=== PATIENT | female | born 2000 | race Caucasian/White ===

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

== ENCOUNTER 2019-03-15 05:49 | Inpatient (IN) | payer SELFPAY ==
[2019-03-15] MEDS: Lactated Ringers 1,000 ML IV SCH ×2 (06:05→07:17)
[2019-03-15] MEDS ORDERED: Sodium Chloride 0.9% 10 ML Syringe FLUSH PRN (06:23)
[2019-03-15] MEDS ORDERED: Sodium Chloride 0.9% 2.5 ML Syringe FLUSH PRN (06:23)
[2019-03-15] MEDS ORDERED: Citric Acid/Sodium Citrate Solution 30 ML Cup PO ONE (06:23)
[2019-03-15] MEDS ORDERED: Sodium Chloride 0.9% 10 ML SDV IV PRN (06:23)
[2019-03-15] MEDS ORDERED: ceFAZolin 1 GM in Premix Bag 1 BAG IV ONE (06:23)
[2019-03-15] MEDS ORDERED: Oxytocin/0.9 % Sodium Chloride 30 UNIT/500 ML BAG IV SCH (06:30)
[2019-03-15] MEDS ORDERED: Ondansetron 4 MG/2 ML SDV ONE (07:13)
[2019-03-15] MEDS ORDERED: Oxytocin 10 Units/1 ML SDV ONE (07:13)
[2019-03-15] MEDS ORDERED: Sodium Chloride 0.9% 20 ML ONE ×2 (07:13→08:05)
[2019-03-15] MEDS ORDERED: ceFAZolin 1 GM Vial ONE (07:13)
[2019-03-15] MEDS ORDERED: Morphine PF 10 MG/10 ML SDV ONE (07:14)
--- NOTE | 2019-03-15 07:30 | PCM.PREANE ---
Preanesthetic Assessment - Anesthesia/Transfusion/Family Hx Anesthesia History: Prior Anesthesia Without Reaction (Prior Epidural with conversion for ) Family History of Anesthesia Reaction: No Transfusion History: No Prior Transfusion(s) Type of Transfusion Reactions: Reports: Unknown - Review of Systems General: No Symptoms Pulmonary: No Symptoms Cardiovascular: No Symptoms Gastrointestinal: No Symptoms Neurological: No Symptoms Other: Reports: None - Physical Assessment NPO Status Date: 03/14/19 NPO Status Time: 22:00 Height: 5 ft 6 in Weight: 67.585 kg ASA Class: 2 Mental Status: Alert & Oriented x3 Airway Class: Mallampati = 2 Dentition: Reports: Normal Dentition Thyro-Mental Finger Breadths: 3 Mouth Opening Finger Breadths: 3 ROM/Head Extension: Full Lungs: Clear to Auscultation, Normal Respiratory Effort Cardiovascular: Regular Rate, Regular Rhythm - Lab Values: Laboratory Last Values WBC 9.47 K/uL (4.0-11.0) 03/15/19 06:07 RBC 3.90 M/uL (4.30-5.90) L 03/15/19 06:07 Hgb 11.8 g/dL (12.0-16.0) L 03/15/19 06:07 Hct 36.3 % (36.0-46.0) 03/15/19 06:07 MCV 93.1 fL (80.0-98.0) 03/15/19 06:07 MCH 30.3 pg (27.0-32.0) 03/15/19 06:07 MCHC 32.5 g/dL (31.0-37.0) 03/15/19 06:07 RDW Std Deviation 48.2 fl (28.0-62.0) 03/15/19 06:07 RDW Coeff of Rosemary 14 % (11.0-15.0) 03/15/19 06:07 Plt Count 196 K/uL (150-400) 03/15/19 06:07 MPV 11.20 fL (7.40-12.00) 03/15/19 06:07 Nucleated RBC % 0.0 /100WBC 03/15/19 06:07 Nucleated RBCs # 0 K/uL 03/15/19 06:07 Blood Type A POSITIVE 03/15/19 06:07 Antibody Screen NEGATIVE 10/08/19 06:07 - Allergies Allergies/Adverse Reactions: Allergies Allergy/AdvReac Type Severity Reaction Status Date / Time pork derived (porcine) Allergy Mouth Sores Verified 03/09/19 13:33 Pork/Porcine Containing Allergy Other Verified 03/09/19 13:33 Products - Acknowledgements Anesthesia Type Planned: General Anesthesia, Spinal (Duramorph) Pt an Appropriate Candidate for the Planned Anesthesia: Yes Alternatives and Risks of Anesthesia Discussed w Pt/Guardian: Yes Pt/Guardian Understands and Agrees with Anesthesia Plan: Yes PreAnesthesia Questionnaire - Past Health History Medical/Surgical History: Denies Medical/Surgical History HEENT History: Reports: Other (See Below) Other HEENT History: wears glasses, permanent lower dental retainer Cardiovascular History: Reports: None Respiratory History: Reports: None Gastrointestinal History: Reports: GERD Genitourinary History: Reports: UTI, Recurrent REVERSE ENGINEER History: Reports: : 2 Para: 1 LMP (Approximate): Musculoskeletal History: Reports: Fracture Other Musculoskeletal History: hx fx wrist Neurological History: Reports: None Psychiatric History: Reports: None Endocrine/Metabolic History: Reports: None Hematologic History: Reports: None Immunologic History: Reports: None Oncologic (Cancer) History: Reports: None Dermatologic History: Reports: None - Infectious Disease History Infectious Disease History: Reports: None - Past Surgical History Head Surgeries/Procedures: Reports: None Cardiovascular Surgical History: Reports: None Respiratory Surgical History: Reports: None GI Surgical History: Reports: None Female Surgical History: Reports: Section Endocrine Surgical History: Reports: None Neurological Surgical History: Reports: None Musculoskeletal Surgical History: Reports: None Oncologic Surgical History: Reports: None Dermatological Surgical History: Reports: None - SUBSTANCE USE Smoking Status *Q: Never Smoker Second Hand Smoke Exposure: No Recreational Drug Use History: No - HOME MEDS Home Medications: Home Meds L.acidoph,Paracasei, B.lactis [Probiotic] 1 tab PO DAILY 03/09/19 [History] PNV95/Ferrous Fumarate/FA [ Vitamin Tablet] 1 tab PO DAILY 03/09/19 [ History] - CURRENT (IN HOUSE) MEDS Current Meds: Current Medications Lactated Ringer's (Ringers, Lactated) 1,000 mls @ 500 mls/hr IV BOLUS ABELINO Last Admin: 03/15/19 07:17 Dose: 999 mls/hr Oxytocin/Sodium Chloride (Oxytocin 30 Unit/500 Ml-Ns) 30 unit in 500 mls @ 250 mls/hr IV TITRATE ABELINO Sodium Chloride (Saline Flush) 10 ml FLUSH ASDIRECTED PRN PRN Reason: Keep Vein Open Sodium Chloride (Saline Flush) 2.5 ml FLUSH ASDIRECTED PRN PRN Reason: Keep Vein Open Sodium Chloride (Normal Saline) 10 ml IV ASDIRECTED PRN PRN Reason: IV Use Discontinued Medications Cefazolin Sodium (Ancef) Confirm Administered Dose 2 gm .ROUTE .STK-MED ONE Stop: 03/15/19 07:14 Citric Acid/Sodium Citrate (Bicitra Solution) 30 ml PO ONETIME ONE Stop: 03/15/19 06:24 Cefazolin Sodium/Dextrose 1 gm (/ Premix) 50 mls @ 100 mls/hr IV ONETIME ONE Stop: 03/15/19 06:52 Sodium Chloride (Normal Saline) Confirm Administered Dose 20 mls @ as directed .ROUTE .STK-MED ONE Stop: 03/15/19 07:14 Morphine Sulfate (Duramorph Pf) Confirm Administered Dose 10 mg .ROUTE .STK-MED ONE Stop: 03/15/19 07:15 Ondansetron HCl (Zofran) Confirm Administered Dose 4 mg .ROUTE .STK-MED ONE Stop: 03/15/19 07:14 Oxytocin (Pitocin) Confirm Administered Dose 30 unit .ROUTE .STK-MED ONE Stop: 03/15/19 07:14
[2019-03-15] MEDS ORDERED: ePHEDrine 50 MG/ML SDV ONE (08:04)
[2019-03-15] MEDS ORDERED: Glycopyrrolate 0.2 MG/ML SDV ONE (08:07)
[2019-03-15] MEDS ORDERED: fentaNYL 100 MCG/2 ML SDV ONE (08:20)
[2019-03-15] MEDS ORDERED: Metoclopramide 10 MG/2 ML SDV ONE (08:27)
[2019-03-15] MEDS ORDERED: Octyl 2-Cyanoacrylate 1 Tube ONE (08:33)
[2019-03-15] MEDS ORDERED: Naloxone 0.4 MG/ML Syringe IVPUSH PRN (08:36)
[2019-03-15] MEDS ORDERED: Nalbuphine 10 MG/1 ML Vial IVPUSH PRN (08:36)
[2019-03-15] MEDS ORDERED: diphenhydrAMINE 50 MG/ML SDV IVPUSH PRN ×2 (08:36→08:38)
--- NOTE | 2019-03-15 08:37 | PCM.OPNOTE ---
- General Post-Op/Procedure Note Date of Surgery/Procedure: 03/15/19 Operative Procedure(s): repeat low transverse Findings: Liveborn male 8/9 weight pending normal pelvis Pre Op Diagnosis: 39 weeks prior , declines VTOL Post-Op Diagnosis: Same Anesthesia Technique: Spinal Primary Surgeon: Breana Kurtz Secondary Surgeon: Sherri Russell Anesthesia Provider: Miguelito Ring Pathology: none Fluid Replacement, Intraop: 1,000 EBL in mLs: 500 Complications: None Known Condition: Good
[2019-03-15] MEDS ORDERED: Lanolin 100% Cream 7 GM Tube TOP PRN (08:38)
[2019-03-15] MEDS ORDERED: Bisacodyl 10 MG Supp RECTAL PRN (08:38)
[2019-03-15] MEDS ORDERED: Ondansetron 4 MG/2 ML SDV IVPUSH PRN (08:38)
[2019-03-15] MEDS ORDERED: Lactated Ringers 1,000 ML IV SCH (08:45)
[2019-03-15] MEDS: Ketorolac 30 MG/ML SDV IVPUSH SCH ×3 (09:15→21:40)
--- NOTE | 2019-03-15 09:39 | PCM.POSTAN ---
POST ANESTHESIA ASSESSMENT - MENTAL STATUS Mental Status: Alert, Oriented - VITAL SIGNS Vital Signs: Last Vital Signs Temp 97.0 F 03/15/19 08:50 Pulse 99 03/15/19 09:25 Resp 18 03/15/19 09:25 BP 112/53 L 03/15/19 09:25 Pulse Ox 97 03/15/19 09:25 - RESPIRATORY Respiratory Status: Respiratory Rate WNL, Airway Patent, O2 Saturation Stable - CARDIOVASCULAR CV Status: Pulse Rate WNL, Blood Pressure Stable - GASTROINTESTINAL GI Status: No Symptoms - POST OP HYDRATION Hydration Status: Adequate & Stable
--- NOTE | 2019-03-15 14:49 | OR ---
SURGEON: Breana Kurtz M.D. DATE OF PROCEDURE: 03/15/2019 PREOPERATIVE DIAGNOSES: 39-week intrauterine , prior delivery, short interval between pregnancies. POSTOPERATIVE DIAGNOSES: 39-week intrauterine , prior delivery, short interval between pregnancies. PROCEDURE: Repeat low-transverse section. PRIMARY SURGEON: Breana Kurtz M.D. SURGICAL SCRUB TECHNICIAN: first [employer], student. ANESTHESIA: Spinal. ESTIMATED BLOOD LOSS: 500 mL with amniotic fluid. FINDINGS: Live-born male. score 8 and 9, weighing 2910 g. Normal-appearing uterus, tubes, and ovaries. COMPLICATIONS: None known. DISPOSITION: Stable to recovery. BRIEF HISTORY: This is a 18-year-old female. She is G2, P1-0-0-1. She presents at 39 weeks gestation for repeat low-transverse section. She has declined vaginal trial of labor and this is not recommended due to short interval between pregnancies with her child being only 14 months old. She understands risks of the delivery including risk of bleeding; infection; injury to bowel, bladder, blood vessels or other organs; risk of thromboembolic event; and risk of anesthesia. Understanding all these risks, she does desire to proceed. DESCRIPTION OF PROCEDURE: With the patient in left tilt position, under adequate spinal analgesia, the abdomen was prepped with chlorhexidine and draped in the usual fashion for abdominal surgery. SCDs were in place. Pinto catheter had been placed. An appropriate time-out was held. She had received 1 g of Ancef IV. After documentation of adequate analgesia, the prior cicatrix was excised and the incision was carried through the subcutaneous tissue to the fascia, which was scored transversely in the midline. The fascial incision was extended laterally using curved Russell scissors. The fascia was elevated from the underlying rectus muscle using sharp and blunt dissection. The rectus muscles were bluntly in the midline. Peritoneum was entered with a finger and this incision was extended using sharp and blunt dissection. The Danny O retractor was placed. The visceroperitoneum over the lower uterine segment was incised and a transverse curvilinear incision was made over the lower uterine segment with a scalpel. Clear fluid was noted. This incision was extended using blunt dissection. The head was delivered via the uterine incision and elevated and delivered with subsequent delivery of the infant's body without any difficulty. The was bulb suctioned by nose and mouth. After 1 minute, the cord was doubly clamped and cut and the infant was handed to the bench hand in attendance at delivery. The was a liveborn male, score 8 and 9, weighing 2910 g. Cord blood was collected for cord ABGs as well as routine cord blood sampling. Pitocin was initiated after delivery of the to assist with delivery of the placenta which was delivered by manual extraction. The cervix was opened with a ring forceps. The uterus was cleaned with a dry laparotomy and tape. The uterine incision was closed with a running lock suture of 0 Polysorb followed by imbricating layer of 0 Polysorb. There was a small area in the right midportion of the uterus requiring a figure-of- eight suture for complete hemostasis and a left lateral suture was also placed for hemostasis. The uterus being completely hemostatic, the paracolic gutters were cleaned with a wet laparotomy tape and the uterine incision was again inspected, it was hemostatic. Therefore, the Danny O retractor was removed. The incision was once again inspected and was hemostatic. The rectus muscle and peritoneum were loosely approximated in midline using a running mattress suture of 0 Polysorb. The posterior aspect of the fascia was inspected and the fascial incision was closed with a running suture of 0 Polysorb. Subcutaneous tissue was irrigated. Any areas of bleeding that were noted were cauterized. The skin was closed with a running subcuticular suture of 3-0 Monocryl followed by Dermabond. Final sponge, needle, and instrument counts were reported as correct. There were no known complications. Mother and baby are in recovery in good condition. KATY / MARIO /[id number]
[2019-03-15] MEDS: Docusate Sodium 100 MG Cap PO SCH ×2 (17:39→21:39)
[2019-03-16] MEDS: Ketorolac 30 MG/ML SDV IVPUSH SCH ×2 (03:50→09:22)
--- NOTE | 2019-03-16 08:09 | PCM48HPAN ---
Post Anesthesia Note - EVALUATION WITHIN 48HRS OF ANESTHETIC Vital Signs in Normal Range: Yes Patient Participated in Evaluation: Yes Respiratory Function Stable: Yes Airway Patent: Yes Cardiovascular Function Stable: Yes Hydration Status Stable: Yes Pain Control Satisfactory: Yes Nausea and Vomiting Control Satisfactory: Yes Mental Status Recovered: Yes Vital Signs: Last Vital Signs Temp 97.2 F 03/16/19 04:00 Pulse 66 03/16/19 04:00 Resp 18 03/16/19 07:00 BP 133/58 L 03/16/19 04:00 Pulse Ox 98 03/16/19 07:00
--- NOTE | 2019-03-16 08:53 | PCM.PNPP ---
- General Info Date of Service: 03/16/19 Functional Status: Reports: Pain Controlled, Tolerating Diet, Ambulating - Review of Systems General: Reports: No Symptoms HEENT: Reports: No Symptoms Pulmonary: Reports: No Symptoms Cardiovascular: Reports: No Symptoms Gastrointestinal: Reports: No Symptoms Genitourinary: Reports: No Symptoms Musculoskeletal: Reports: No Symptoms Skin: Reports: No Symptoms Neurological: Reports: No Symptoms Psychiatric: Reports: No Symptoms - Patient Data Vital Signs - Most Recent: Last Vital Signs Temp 36.2 C 03/16/19 04:00 Pulse 66 03/16/19 04:00 Resp 18 03/16/19 07:00 BP 133/58 L 03/16/19 04:00 Pulse Ox 98 03/16/19 07:00 Weight - Most Recent: 67.585 kg I&O - Last 24 Hours: Intake & Output 03/15/19 03/16/19 03/16/19 22:59 06:59 14:59 Intake Total 150 Output Total 1425 1500 Balance -1275 -1500 Lab Results - Last 24 Hours: Laboratory Results - last 24 hr 03/16/19 Range/Units 05:58 Hgb 10.5 L (12.0-16.0) g/dL Hct 32.9 L (36.0-46.0) % Med Orders - Current: Current Medications Bisacodyl (Dulcolax) 10 mg RECTAL ONETIME PRN PRN Reason: Constipation Diphenhydramine HCl (Benadryl) 25 mg IVPUSH Q6H PRN PRN Reason: Itching or Nausea Docusate Sodium (Colace) [address] [facility] Last Admin: 03/15/19 21:39 Dose: 100 mg Emollient Ointment (Lansinoh Hpa) 0 gm TOP ASDIRECTED PRN PRN Reason: Sore Nipples Lactated Ringer's (Ringers, Lactated) 1,000 mls @ 125 mls/hr IV ASDIRECTED [facility] Ibuprofen (Motrin) 800 mg PO Q8H PRN PRN Reason: mild pain or fever Ondansetron HCl (Zofran) 4 mg IVPUSH Q4H PRN PRN Reason: Nausea/Vomiting Oxycodone/Acetaminophen (Percocet 325-5 Mg) 1 tab PO Q4H PRN PRN Reason: Pain (moderate 4-6) Oxycodone/Acetaminophen (Percocet 325-5 Mg) 2 tab PO Q4H PRN PRN Reason: Pain (moderate 4-6) Discontinued Medications Cefazolin Sodium (Ancef) Confirm Administered Dose 2 gm .ROUTE .STK-MED ONE Stop: 03/15/19 07:14 Citric Acid/Sodium Citrate (Bicitra Solution) 30 ml PO ONETIME ONE Stop: 03/15/19 06:24 Diphenhydramine HCl (Benadryl) 25 mg IVPUSH Q4H PRN PRN Reason: Itching Stop: 03/16/19 08:37 Last Admin: 03/15/19 17:55 Dose: 25 mg Ephedrine Sulfate (Ephedrine Sulfate) Confirm Administered Dose 50 mg .ROUTE .STK-MED ONE Stop: 03/15/19 08:05 Fentanyl (Sublimaze) Confirm Administered Dose 100 mcg .ROUTE .STK-MED ONE Stop: 03/15/19 08:21 Glycopyrrolate (Robinul) Confirm Administered Dose 0.2 mg .ROUTE .STK-MED ONE Stop: 03/15/19 08:08 Cefazolin Sodium/Dextrose 1 gm (/ Premix) 50 mls @ 100 mls/hr IV ONETIME ONE Stop: 03/15/19 06:52 Lactated Ringer's (Ringers, Lactated) 1,000 mls @ 500 mls/hr IV BOLUS [facility] Last Admin: 03/15/19 07:17 Dose: 999 mls/hr Oxytocin/Sodium Chloride (Oxytocin 30 Unit/500 Ml-Ns) 30 unit in 500 mls @ 250 mls/hr IV TITRATE [facility] Sodium Chloride (Normal Saline) Confirm Administered Dose 20 mls @ as directed .ROUTE .STK-MED ONE Stop: 03/15/19 07:14 Sodium Chloride (Normal Saline) Confirm Administered Dose 20 mls @ as directed .ROUTE .STK-MED ONE Stop: 03/15/19 08:06 Ketorolac Tromethamine (Toradol) [address] [facility] Stop: 03/16/19 08:46 Last Admin: 03/16/19 03:50 Dose: 30 mg Metoclopramide HCl (Reglan) Confirm Administered Dose 10 mg .ROUTE .STK-MED ONE Stop: 03/15/19 08:28 Morphine Sulfate (Duramorph Pf) Confirm Administered Dose 10 mg .ROUTE .STK-MED ONE Stop: 03/15/19 07:15 Nalbuphine HCl (Nubain) 5 mg IVPUSH Q3H PRN PRN Reason: Pruritis Stop: 03/16/19 08:37 Last Admin: 03/15/19 21:50 Dose: 5 mg Naloxone HCl (Narcan) 0.1 mg IVPUSH ONETIME PRN PRN Reason: Respiratory Depression Stop: 03/16/19 08:37 Octyl Cyanoacrylate (Dermabond Advance) Confirm Administered Dose 1 applic .ROUTE .STK-MED ONE Stop: 03/15/19 08:34 Ondansetron HCl (Zofran) Confirm Administered Dose 4 mg .ROUTE .STK-MED ONE Stop: 03/15/19 07:14 Oxytocin (Pitocin) Confirm Administered Dose 30 unit .ROUTE .STK-MED ONE Stop: 03/15/19 07:14 Sodium Chloride (Saline Flush) 10 ml FLUSH ASDIRECTED PRN PRN Reason: Keep Vein Open Sodium Chloride (Saline Flush) 2.5 ml FLUSH ASDIRECTED PRN PRN Reason: Keep Vein Open Sodium Chloride (Normal Saline) 10 ml IV ASDIRECTED PRN PRN Reason: IV Use - Infant Interaction Infant Disposition, : [place] to Nursery Support Person: Significant Other - Recovery Exam Fundal Tone: Firm Fundal Level: At Umbilicus Fundal Placement: Midline Lochia Amount: Small Lochia Color: Rubra/Red Perineum Description: Intact, Minimal Bruising/Swelling Episiotomy/Laceration: None Bladder Status: Indwelling Catheter in Place Urinary Elimination: Indwelling Catheter - Exam General: Alert, Oriented HEENT: Pupils Equal Neck: Supple Lungs: Normal Respiratory Effort GI/Abdominal Exam: Soft, Non-Tender, No Organomegaly, No Distention Extremities: Normal Inspection, Non-Tender, No Pedal Edema Skin: Warm, Dry, Intact Wound/Incisions: Healing Well Neurological: No New Focal Deficit Psy/Mental Status: Alert, Normal Affect, Normal Mood - Problem List & Annotations (1) delivery delivered SNOMED Code(s): 841040876 Code(s): O82 - ENCOUNTER FOR DELIVERY WITHOUT INDICATION Status: Acute Current Visit: No - Problem List Review Problem List Initiated/Reviewed/Updated: Yes - My Orders Last 24 Hours: My Active Orders 03/15/19 08:38 Patient Status [ADT] Routine Ambulate [RC] PER UNIT ROUTINE Antiembolic Devices [RC] PER UNIT ROUTINE Communication Order [RC] PER UNIT ROUTINE Communication Order [RC] Per Unit Routine May Shower [RC] ASDIRECTED RT Incentive Spirometry [RC] Q2HWA Vital Signs [RC] PER UNIT ROUTINE Acetaminophen/oxyCODONE [Percocet 325-5 MG] 1 tab PO Q4H PRN Acetaminophen/oxyCODONE [Percocet 325-5 MG] 2 tab PO Q4H PRN Bisacodyl [Dulcolax] 10 mg RECTAL ONETIME PRN Ibuprofen [Motrin] 800 mg PO Q8H PRN Lanolin [Lansinoh HPA] See Dose Instructions TOP ASDIRECTED PRN Ondansetron [Zofran] 4 mg IVPUSH Q4H PRN diphenhydrAMINE [Benadryl] 25 mg IVPUSH Q6H PRN Abdominal Binder [OM.PC] Urgent Assess Lochia [WOMSER] Per Unit Routine Assess Uterine Involution [WOMSER] Per Unit Routine Breast Pump [WOMSER] Per Unit Routine Peripheral IV Discontinue [OM.PC] Routine Sequential Compression Device [OM.PC] Per Unit Routine Resuscitation Status Routine 03/15/19 08:39 Intake and Output [RC] Q12H Notify Provider Intake and Out [RC] ASDIRECTED 03/15/19 08:45 Lactated Ringers [Ringers, Lactated] 1,000 ml IV ASDIRECTED 03/15/19 09:00 Docusate Sodium [Colace] 100 mg PO BID 03/15/19 Lunch Clear Liquid Diet [DIET] - Assessment Assessment:: POD#1 after Repeat , stable, minimal lochia, pain well controlled. - Plan Plan:: Discussed oral pain medication today, ambulation, continue postop care.
[2019-03-16] MEDS: Docusate Sodium 100 MG Cap PO SCH ×2 (09:21→20:55)
[2019-03-16] MEDS: Acetaminophen/oxyCODONE 325-5 MG Tab PO PRN ×3 (12:12→20:55)
[2019-03-16] MEDS: Ibuprofen 800 MG Tab PO PRN (18:57)
[2019-03-17] MEDS: Ibuprofen 800 MG Tab PO PRN (05:32)
[2019-03-17] MEDS: Acetaminophen/oxyCODONE 325-5 MG Tab PO PRN ×3 (05:34→12:49)
--- NOTE | 2019-03-17 08:38 | PCM.PNPP ---
- General Info Date of Service: 03/17/19 Functional Status: Reports: Pain Controlled, Tolerating Diet, Ambulating, Urinating - Review of Systems General: Reports: No Symptoms HEENT: Reports: No Symptoms Pulmonary: Reports: No Symptoms Cardiovascular: Reports: No Symptoms Gastrointestinal: Reports: No Symptoms Genitourinary: Reports: No Symptoms Musculoskeletal: Reports: No Symptoms Skin: Reports: No Symptoms Neurological: Reports: No Symptoms Psychiatric: Reports: No Symptoms - General Info Date of Service: 03/17/19 - Patient Data Vital Signs - Most Recent: Last Vital Signs Temp 36.3 C 03/17/19 08:00 Pulse 72 03/17/19 08:00 Resp 16 03/17/19 08:00 BP 100/57 L 03/17/19 08:00 Pulse Ox 97 03/17/19 08:00 Weight - Most Recent: 67.585 kg Med Orders - Current: Current Medications Bisacodyl (Dulcolax) 10 mg RECTAL ONETIME PRN PRN Reason: Constipation Diphenhydramine HCl (Benadryl) 25 mg IVPUSH Q6H PRN PRN Reason: Itching or Nausea Docusate Sodium (Colace) 100 mg PO BID [facility] Last Admin: 03/16/19 20:55 Dose: 100 mg Emollient Ointment (Lansinoh Hpa) 0 gm TOP ASDIRECTED PRN PRN Reason: Sore Nipples Lactated Ringer's (Ringers, Lactated) 1,000 mls @ 125 mls/hr IV ASDIRECTED ABELINO Ibuprofen (Motrin) 800 mg PO Q8H PRN PRN Reason: mild pain or fever Last Admin: 03/17/19 05:32 Dose: 800 mg Ondansetron HCl (Zofran) 4 mg IVPUSH Q4H PRN PRN Reason: Nausea/Vomiting Oxycodone/Acetaminophen (Percocet 325-5 Mg) 1 tab PO Q4H PRN PRN Reason: Pain (moderate 4-6) Last Admin: 03/16/19 12:12 Dose: 1 tab Oxycodone/Acetaminophen (Percocet 325-5 Mg) 2 tab PO Q4H PRN PRN Reason: Pain (moderate 4-6) Last Admin: 03/17/19 05:34 Dose: 2 tab Discontinued Medications Cefazolin Sodium (Ancef) Confirm Administered Dose 2 gm .ROUTE .STK-MED ONE Stop: 03/15/19 07:14 Citric Acid/Sodium Citrate (Bicitra Solution) 30 ml PO ONETIME ONE Stop: 03/15/19 06:24 Diphenhydramine HCl (Benadryl) 25 mg IVPUSH Q4H PRN PRN Reason: Itching Stop: 03/16/19 08:37 Last Admin: 03/15/19 17:55 Dose: 25 mg Ephedrine Sulfate (Ephedrine Sulfate) Confirm Administered Dose 50 mg .ROUTE .STK-MED ONE Stop: 03/15/19 08:05 Fentanyl (Sublimaze) Confirm Administered Dose 100 mcg .ROUTE .STK-MED ONE Stop: 03/15/19 08:21 Glycopyrrolate (Robinul) Confirm Administered Dose 0.2 mg .ROUTE .STK-MED ONE Stop: 03/15/19 08:08 Cefazolin Sodium/Dextrose 1 gm (/ Premix) 50 mls @ 100 mls/hr IV ONETIME ONE Stop: 03/15/19 06:52 Lactated Ringer's (Ringers, Lactated) 1,000 mls @ 500 mls/hr IV BOLUS [facility] Last Admin: 03/15/19 07:17 Dose: 999 mls/hr Oxytocin/Sodium Chloride (Oxytocin 30 Unit/500 Ml-Ns) 30 unit in 500 mls @ 250 mls/hr IV TITRATE [facility] Sodium Chloride (Normal Saline) Confirm Administered Dose 20 mls @ as directed .ROUTE .STK-MED ONE Stop: 03/15/19 07:14 Sodium Chloride (Normal Saline) Confirm Administered Dose 20 mls @ as directed .ROUTE .STK-MED ONE Stop: 03/15/19 08:06 Ketorolac Tromethamine (Toradol) 30 mg IVPUSH Q6H [facility] Stop: 03/16/19 08:46 Last Admin: 03/16/19 09:22 Dose: 30 mg Metoclopramide HCl (Reglan) Confirm Administered Dose 10 mg .ROUTE .STK-MED ONE Stop: 03/15/19 08:28 Morphine Sulfate (Duramorph Pf) Confirm Administered Dose 10 mg .ROUTE .STK-MED ONE Stop: 03/15/19 07:15 Nalbuphine HCl (Nubain) 5 mg IVPUSH Q3H PRN PRN Reason: Pruritis Stop: 03/16/19 08:37 Last Admin: 03/15/19 21:50 Dose: 5 mg Naloxone HCl (Narcan) 0.1 mg IVPUSH ONETIME PRN PRN Reason: Respiratory Depression Stop: 03/16/19 08:37 Octyl Cyanoacrylate (Dermabond Advance) Confirm Administered Dose 1 applic .ROUTE .STK-MED ONE Stop: 03/15/19 08:34 Ondansetron HCl (Zofran) Confirm Administered Dose 4 mg .ROUTE .STK-MED ONE Stop: 03/15/19 07:14 Oxytocin (Pitocin) Confirm Administered Dose 30 unit .ROUTE .STK-MED ONE Stop: 03/15/19 07:14 Sodium Chloride (Saline Flush) 10 ml FLUSH ASDIRECTED PRN PRN Reason: Keep Vein Open Sodium Chloride (Saline Flush) 2.5 ml FLUSH ASDIRECTED PRN PRN Reason: Keep Vein Open Sodium Chloride (Normal Saline) 10 ml IV ASDIRECTED PRN PRN Reason: IV Use - Infant Interaction Infant Disposition, : in Room with Family Interaction: Holding Infant Feeding: Breastfed ; Nursed Well Support Person: Significant Other - Recovery Exam Fundal Tone: Firm Fundal Level: 1 Fingerbreadths Below Umbilicus Fundal Placement: Midline Lochia Amount: Scant, Small Lochia Color: Rubra/Red Perineum Description: Intact, Minimal Bruising/Swelling Episiotomy/Laceration: None Bladder Status: Voiding Urinary Elimination: Voided - Exam General: Alert, Oriented HEENT: Pupils Equal Neck: Supple Lungs: Normal Respiratory Effort GI/Abdominal Exam: Soft, Non-Tender, No Organomegaly, No Distention Extremities: Normal Inspection, Non-Tender, No Pedal Edema Skin: Warm, Dry, Intact Wound/Incisions: Healing Well Neurological: No New Focal Deficit Psy/Mental Status: Alert, Normal Affect, Normal Mood - Problem List & Annotations (1) delivery delivered SNOMED Code(s): 989072665 Code(s): O82 - ENCOUNTER FOR DELIVERY WITHOUT INDICATION Status: Acute Current Visit: No - Problem List Review Problem List Initiated/Reviewed/Updated: Yes - My Orders Last 24 Hours: My Active Orders 03/17/19 08:37 Ready for Discharge [RC] PER UNIT ROUTINE - Assessment Assessment:: POD#2 after Repeat , stable, minimal lochia, pain well controlled. Would like to go home today. - Plan Plan:: Discharge instructions reviewed, dismiss to home.
[2019-03-17] MEDS: Docusate Sodium 100 MG Cap PO SCH (09:09)
== END 2019-03-17 13:20 | disposition home or self-care (01) | DRG 788 ==
LOC: MW.OB 05:49
PROVIDERS: ADMIT Obstetrics & Gynecology; ATTEND Obstetrics & Gynecology
PROC: 10D00Z1 Extraction of Products of Conception, Low, Open Approach (ICD-10-PCS; principal; 2019-03-15)
DX: O34.211 Maternal care for low transverse scar from previous cesarean delivery (principal); O99.62 Diseases of the digestive system complicating childbirth; K21.9 Gastro-esophageal reflux disease without esophagitis; Z3A.39 39 weeks gestation of pregnancy; Z37.0 Single live birth
CPT/HCPCS: 36415; 59025; 82803; 85014; 85018; 85027; 86850; 86900; 86901; A9270-GY; J0690; J1200; J1885; J2270; J2300; J2405; J2590; J2765; J3010; J3490; J7120